=== PATIENT | male | born 1940 | race African-American/Black ===

== ENCOUNTER 2017-06-07 17:40 | Inpatient (IN) | payer MEDICARE, OTHER ==
[~2017-06-07] VITALS: Ht 165.1 cm; Wt 61.0 kg
[~2017-06-07 17:40] MED LIST: SITA50 PO
[2017-06-07] MEDS ORDERED: ATOR10TA69 PO (17:50)
[2017-06-07] MEDS ORDERED: LORA0.5T83 PO (17:50)
[2017-06-07] MEDS ORDERED: METF500T4 PO (17:50)
[2017-06-07] MEDS ORDERED: MEMA10TA20 PO (17:50)
[2017-06-07] MEDS ORDERED: LEVO25TA9 PO (17:50)
[2017-06-07] MEDS ORDERED: LIDO700A30 TP (17:50)
[2017-06-07] MEDS ORDERED: FURO20TA4 PO (17:50)
[2017-06-07 17:58] LABS: GLUCOSE,POINT OF CARE 142 MG/DL (70-110)
[2017-06-07 19:33] LABS: BASOPHILS % (AUTO) 0.8 % (0.0-2.0); EOSINOPHILS % (AUTO) 0.8 % (1.0-6.0); HEMATOCRIT 43.7 % (41-53); HEMOGLOBIN 14.6 g/dL (13.5-17.5); LYMPHOCYTES % (AUTO) 20.5 % (22.0-44.0); MEAN CORPUSCULAR HEMOGLOBIN 29.9 pg (26.0-34.0); MEAN CORPUSCULAR HGB CONC 33.4 G/dL (31.0-37.0); MEAN CORPUSCULAR VOLUME 90 fL (80-100); MONOCYTES # (AUTO) 0.4 K/uL (0.1-1.0); MONOCYTES % (AUTO) 8.1 % (2.0-9.0); NEUTROPHILS # (AUTO) 3.3 K/uL (1.8-7.7); NEUTROPHILS % (AUTO) 69.8 % (40.0-70.0); PLATELET COUNT (AUTO) 239 K/uL (150-450); RED BLOOD CELL COUNT(AUTO) 4.88 MIL/uL (4.50-5.90)
[2017-06-07 19:40] LABS: ANION GAP 10 mmol/L (8-16); CALCIUM, TOTAL 9.4 mg/dL (8.8-10.5); CARBON DIOXIDE 27 mmol/L (22-29); CHLORIDE 100 mmol/L (98-107); CREATININE 1.47 mg/dL (0.60-1.30); GLOMERULAR FILTR. RATE CALC 56 mL/min (>60); GLUCOSE,RANDOM 158 mg/dL (70-110); POTASSIUM 4.5 mmol/L (3.5-5.1); SODIUM SERUM 137 mmol/L (136-145); UREA NITROGEN, BLOOD 29 mg/dL (7-18)
[2017-06-07 19:50] LABS: INR 1.2 (0.9-1.1)
[2017-06-07 20:00] LABS: B-TYPE NATRIURETIC PEPTIDE 2270 pg/mL (0-100)
[2017-06-07 20:04] LABS: ALANINE AMINOTRANSFERASE 21 U/L (12-78); ALBUMIN 3.7 g/dL (3.4-5.0); ALKALINE PHOSPHATASE 122 U/L (46-116); ASPARTATE AMINOTRANSFERASE 28 U/L (15-37); BILIRUBIN,TOTAL 0.6 mg/dL (0.1-1.0); CREATINE KINASE MB 2.9 ng/mL (0-5); CREATINE KINASE, TOTAL 164 U/L (39-308); TOTAL PROTEIN, SERUM 8.7 g/dL (6.4-8.2)
[2017-06-07] MEDS ORDERED: FUROSEMIDE 40 MG/4 ML VIAL IVP ONE (21:15)
[2017-06-07] MEDS ORDERED: ASPIRIN 325 MG TABLET PO ONE (21:15)
[2017-06-07] MEDS ORDERED: ACETAMINOPHEN 325 MG TABLET PO PRN ×2 (21:30→23:30)
[2017-06-07] MEDS ORDERED: ONDANSETRON HCL 4 MG/2 ML VIAL IVP PRN ×2 (21:30→23:30)
[2017-06-07] MEDS ORDERED: 0.9% SODIUM CHLORIDE 10 ML SYRINGE IVP PRN (21:30)
[2017-06-07 22:21] LABS: APPEARANCE,URINE CLEAR (CLEAR); BILIRUBIN,URINE NEGATIVE (NEGATIVE); GLUCOSE, URINE (UA) NEGATIVE (NEGATIVE); KETONES,URINE NEGATIVE (NEGATIVE); LEUKOCYTE ESTERASE ,URINE NEGATIVE (NEGATIVE); NITRATE,URINE NEGATIVE (NEGATIVE); OCCULT BLOOD,URINE TRACE (NEGATIVE); PH,URINE 6.5 (5.0-8.0); PROTEIN,URINE SEE CONFIRM (NEGATIVE); UROBILINOGEN,URINE 0.2 mg/dL (<=1.0)
[2017-06-07 23:05] LABS: SULFOSALICYLIC ACID,URINE 2+ (Negative)
[2017-06-07 23:08] LABS: BACTERIA,URINE None Seen /HPF (None Seen); RBC,URINE 0-2 /HPF (0-2); SQUAMOUS EPITHELIAL CELL,UR Rare /LPF (None Seen); WBC,URINE None Seen /HPF (0-5)
[2017-06-07 23:17] VITALS: BP 142/96
[2017-06-07] MEDS ORDERED: DEXTROSE 50%-WATER 25 GM/50 ML SYRINGE IVP PRN (23:30)
[2017-06-07] MEDS ORDERED: HYDROCODONE/ACETAMINOPHEN 5-325 MG TABLET PO PRN (23:30)
[2017-06-07 23:56] LABS: HEMOGLOBIN A1C 7.6 % (4.5-6.2)
[2017-06-07] MEDS: HEPARIN SODIUM,PORCINE 5,000 UNITS/ML VIAL SQ SCH (23:58)
[2017-06-07] MEDS: BUMETANIDE 0.25 MG/ML 4 ML VIAL IVP SCH (23:58)
[2017-06-08 00:11] LABS: THYROID STIMULATING HORMONE 6.55 uIU/mL (0.36-3.74)
[2017-06-08 00:45] LABS: PROSTATE SPECIFIC ANTIGEN < 0.13 ng/mL (0.00-4.00)
[2017-06-08 04:03] VITALS: BP 130/86
[2017-06-08] MEDS ORDERED: MetFORMIN HCL 500 MG TABLET PO SCH (06:30)
[2017-06-08 06:54] LABS: BASOPHILS % (AUTO) 0.8 % (0.0-2.0); EOSINOPHILS % (AUTO) 1.4 % (1.0-6.0); HEMATOCRIT 37.5 % (41-53); HEMOGLOBIN 12.5 g/dL (13.5-17.5); LYMPHOCYTES # (AUTO) 1.2 K/uL (1.0-4.8); LYMPHOCYTES % (AUTO) 27.3 % (22.0-44.0); MEAN CORPUSCULAR HEMOGLOBIN 29.6 pg (26.0-34.0); MEAN CORPUSCULAR HGB CONC 33.4 G/dL (31.0-37.0); MEAN CORPUSCULAR VOLUME 89 fL (80-100); MONOCYTES # (AUTO) 0.4 K/uL (0.1-1.0); MONOCYTES % (AUTO) 9.8 % (2.0-9.0); NEUTROPHILS # (AUTO) 2.7 K/uL (1.8-7.7); NEUTROPHILS % (AUTO) 60.7 % (40.0-70.0); PLATELET COUNT (AUTO) 226 K/uL (150-450); RED BLOOD CELL COUNT(AUTO) 4.24 MIL/uL (4.50-5.90); RED CELL DISTRIBUTION WIDTH 16.6 % (11.5-14.5)
[2017-06-08 07:16] VITALS: BP 120/89
[2017-06-08 07:16] LABS: BILIRUBIN,TOTAL 0.6 mg/dL (0.1-1.0); CALCIUM, TOTAL 8.8 mg/dL (8.8-10.5); CREATININE 1.44 mg/dL (0.60-1.30); POTASSIUM 4.2 mmol/L (3.5-5.1); TOTAL PROTEIN, SERUM 6.9 g/dL (6.4-8.2)
[2017-06-08] MEDS: LORazepam 0.5 MG TABLET PO SCH (08:39)
[2017-06-08] MEDS: DOCUSATE SODIUM 100 MG CAPSULE PO SCH ×2 (08:39→21:22)
[2017-06-08] MEDS: MEMANTINE HCL 10 MG TABLET PO SCH ×2 (08:41→21:22)
[2017-06-08] MEDS: BUMETANIDE 0.25 MG/ML 4 ML VIAL IVP SCH ×2 (08:41→21:22)
[2017-06-08] MEDS: LIDOCAINE HCL 5% TRANSDERMAL PATCH TD SCH (08:41)
[2017-06-08] MEDS: SitaGLIPtin PHOSPHATE 100 MG TABLET PO SCH (08:41)
[2017-06-08] MEDS: PANTOPRAZOLE SODIUM 40 MG/VIAL IVP SCH (08:42)
[2017-06-08] MEDS: HEPARIN SODIUM,PORCINE 5,000 UNITS/ML VIAL SQ SCH ×2 (08:42→15:48)
[2017-06-08] MEDS ORDERED: LEVOTHYROXINE SODIUM 25 MCG TABLET PO SCH (09:00)
[2017-06-08 11:33] VITALS: BP 130/89
[2017-06-08] MEDS: CARVEDILOL 6.25 MG TABLET PO SCH ×2 (15:47→21:00)
[2017-06-08 16:15] VITALS: BP 121/84
[2017-06-08 19:39] LABS: GLUCOMETER DEV NAME(LOC) 5S 1M; GLUCOSE,POINT OF CARE 103 MG/DL (70-110)
[2017-06-08 19:39] LABS: GLUCOMETER DEV NAME(LOC) 5N 2S; GLUCOSE,POINT OF CARE 87 MG/DL (70-110)
[2017-06-08 19:42] LABS: GLUCOMETER DEV NAME(LOC) 5S 1M; GLUCOSE,POINT OF CARE 101 MG/DL (70-110)
[2017-06-08 20:14] VITALS: BP 104/74
[2017-06-08] MEDS: ATORVASTATIN CALCIUM 10 MG TABLET PO SCH (21:22)
[2017-06-08] MEDS: -LIDODERM PATCH NOTE- MISC SCH (21:37)
[2017-06-09 00:09] VITALS: BP 104/53
[2017-06-09] MEDS: HEPARIN SODIUM,PORCINE 5,000 UNITS/ML VIAL SQ SCH ×4 (00:24→23:32)
[2017-06-09 01:08] LABS: GLUCOMETER DEV NAME(LOC) 5S 1M; GLUCOSE,POINT OF CARE 118 MG/DL (70-110)
[2017-06-09] MEDS: LEVOTHYROXINE SODIUM 50 MCG TABLET PO SCH (06:12)
[2017-06-09 06:48] LABS: BASOPHILS % (AUTO) 0.7 % (0.0-2.0); EOSINOPHILS % (AUTO) 1.8 % (1.0-6.0); HEMATOCRIT 36.5 % (41-53); HEMOGLOBIN 12.6 g/dL (13.5-17.5); MEAN CORPUSCULAR HEMOGLOBIN 30.5 pg (26.0-34.0); MEAN CORPUSCULAR HGB CONC 34.6 G/dL (31.0-37.0); MEAN CORPUSCULAR VOLUME 88 fL (80-100); MONOCYTES # (AUTO) 0.5 K/uL (0.1-1.0); MONOCYTES % (AUTO) 12.2 % (2.0-9.0); NEUTROPHILS # (AUTO) 2.4 K/uL (1.8-7.7); NEUTROPHILS % (AUTO) 59.3 % (40.0-70.0); PLATELET COUNT (AUTO) 225 K/uL (150-450); RED BLOOD CELL COUNT(AUTO) 4.14 MIL/uL (4.50-5.90); RED CELL DISTRIBUTION WIDTH 16.5 % (11.5-14.5)
[2017-06-09 06:57] LABS: CALCIUM, TOTAL 8.7 mg/dL (8.8-10.5); CREATININE 1.5 mg/dL (0.60-1.30); MAGNESIUM 1.6 mg/dL (1.80-2.40); POTASSIUM 4.3 mmol/L (3.5-5.1)
[2017-06-09 07:18] LABS: GLUCOMETER DEV NAME(LOC) 5S 1M; GLUCOSE,POINT OF CARE 107 MG/DL (70-110)
[2017-06-09 07:59] VITALS: BP 111/74
[2017-06-09] MEDS: PANTOPRAZOLE SODIUM 40 MG/VIAL IVP SCH (08:54)
[2017-06-09] MEDS: MEMANTINE HCL 10 MG TABLET PO SCH ×2 (08:55→20:16)
[2017-06-09] MEDS: CARVEDILOL 6.25 MG TABLET PO SCH ×2 (08:55→20:17)
[2017-06-09] MEDS: DOCUSATE SODIUM 100 MG CAPSULE PO SCH ×2 (08:55→20:27)
[2017-06-09] MEDS: SitaGLIPtin PHOSPHATE 100 MG TABLET PO SCH (08:55)
[2017-06-09] MEDS: LIDOCAINE HCL 5% TRANSDERMAL PATCH TD SCH (08:55)
[2017-06-09] MEDS: BUMETANIDE 0.25 MG/ML 4 ML VIAL IVP SCH ×2 (08:55→20:16)
[2017-06-09] MEDS: LORazepam 0.5 MG TABLET PO SCH (08:55)
[2017-06-09 11:16] VITALS: BP 111/74
[2017-06-09 15:58] VITALS: BP 115/72
[2017-06-09 20:04] VITALS: BP_SYST 131; BP_DIAS 20; BP_DIAS 70
[2017-06-09 20:13] LABS: GLUCOMETER DEV NAME(LOC) 5N 2S; GLUCOSE,POINT OF CARE 26 MG/DL (70-110)
[2017-06-09 20:13] LABS: GLUCOMETER DEV NAME(LOC) 5N 2S; GLUCOSE,POINT OF CARE 45 MG/DL (70-110)
[2017-06-09 20:13] LABS: GLUCOMETER DEV NAME(LOC) 5N 2S; GLUCOSE,POINT OF CARE 196 MG/DL (70-110)
[2017-06-09] MEDS: ZOLPIDEM TARTRATE 5 MG TABLET PO PRN (20:16)
[2017-06-09] MEDS: ATORVASTATIN CALCIUM 10 MG TABLET PO SCH (20:17)
[2017-06-09] MEDS: -LIDODERM PATCH NOTE- MISC SCH (21:00)
[2017-06-09 23:58] LABS: GLUCOMETER DEV NAME(LOC) 5S 1M; GLUCOSE,POINT OF CARE 144 MG/DL (70-110)
[2017-06-10 00:02] VITALS: BP 104/75
[2017-06-10 04:19] VITALS: BP 109/78
[2017-06-10] MEDS: LEVOTHYROXINE SODIUM 50 MCG TABLET PO SCH (05:37)
[2017-06-10 06:33] LABS: GLUCOMETER DEV NAME(LOC) 5N 2S; GLUCOSE,POINT OF CARE 98 MG/DL (70-110)
[2017-06-10 07:45] VITALS: BP 112/67
[2017-06-10] MEDS: HEPARIN SODIUM,PORCINE 5,000 UNITS/ML VIAL SQ SCH ×3 (09:09→23:39)
[2017-06-10] MEDS: CARVEDILOL 6.25 MG TABLET PO SCH ×2 (09:09→20:59)
[2017-06-10] MEDS: PANTOPRAZOLE SODIUM 40 MG/VIAL IVP SCH (09:09)
[2017-06-10] MEDS: LORazepam 0.5 MG TABLET PO SCH (09:10)
[2017-06-10] MEDS: DOCUSATE SODIUM 100 MG CAPSULE PO SCH ×2 (09:11→20:59)
[2017-06-10] MEDS: BUMETANIDE 0.25 MG/ML 4 ML VIAL IVP SCH ×2 (09:11→21:00)
[2017-06-10] MEDS: LIDOCAINE HCL 5% TRANSDERMAL PATCH TD SCH (09:12)
[2017-06-10] MEDS: SitaGLIPtin PHOSPHATE 100 MG TABLET PO SCH (09:12)
[2017-06-10] MEDS: MEMANTINE HCL 10 MG TABLET PO SCH ×2 (09:12→20:59)
[2017-06-10 11:30] VITALS: BP 127/70
[2017-06-10] MEDS: INSULIN LISPRO 100 UNITS/ML SQ PRN ×2 (11:39→16:46)
[2017-06-10 16:10] VITALS: BP 124/68
[2017-06-10 20:34] VITALS: BP 115/66
[2017-06-10] MEDS: ZOLPIDEM TARTRATE 5 MG TABLET PO PRN (20:59)
[2017-06-10] MEDS: ATORVASTATIN CALCIUM 10 MG TABLET PO SCH (20:59)
[2017-06-10] MEDS: -LIDODERM PATCH NOTE- MISC SCH (21:00)
[2017-06-11 00:29] VITALS: BP 99/59
[2017-06-11 05:16] VITALS: BP 108/71
[2017-06-11] MEDS: LEVOTHYROXINE SODIUM 50 MCG TABLET PO SCH (05:30)
[2017-06-11 07:08] LABS: GLUCOMETER DEV NAME(LOC) 5S 2N; GLUCOSE,POINT OF CARE 112 MG/DL (70-110)
[2017-06-11 07:19] VITALS: BP 110/73
[2017-06-11 07:32] LABS: GLUCOMETER DEV NAME(LOC) 5N 2S; GLUCOSE,POINT OF CARE 104 MG/DL (70-110)
[2017-06-11 07:32] LABS: GLUCOMETER DEV NAME(LOC) 5N 2S; GLUCOSE,POINT OF CARE 97 MG/DL (70-110)
[2017-06-11 07:32] LABS: GLUCOMETER DEV NAME(LOC) 5N 2S; GLUCOSE,POINT OF CARE 127 MG/DL (70-110)
[2017-06-11 07:32] LABS: GLUCOMETER DEV NAME(LOC) 5N 2S; GLUCOSE,POINT OF CARE 150 MG/DL (70-110)
[2017-06-11] MEDS: LORazepam 0.5 MG TABLET PO SCH (09:16)
[2017-06-11] MEDS: DOCUSATE SODIUM 100 MG CAPSULE PO SCH (09:16)
[2017-06-11] MEDS: CARVEDILOL 6.25 MG TABLET PO SCH (09:16)
[2017-06-11] MEDS: MEMANTINE HCL 10 MG TABLET PO SCH (09:16)
[2017-06-11] MEDS: HEPARIN SODIUM,PORCINE 5,000 UNITS/ML VIAL SQ SCH (09:17)
[2017-06-11] MEDS: BUMETANIDE 0.25 MG/ML 4 ML VIAL IVP SCH (09:17)
[2017-06-11] MEDS: PANTOPRAZOLE SODIUM 40 MG/VIAL IVP SCH (09:18)
[2017-06-11] MEDS: LIDOCAINE HCL 5% TRANSDERMAL PATCH TD SCH (09:30)
[2017-06-11 12:00] VITALS: BP 118/70
[2017-06-11] MEDS: SitaGLIPtin PHOSPHATE 100 MG TABLET PO SCH (12:37)
[2017-06-11] MEDS ORDERED: FURO20 PO (14:34)
[2017-06-11] MEDS ORDERED: CARV6 PO (14:35)
[2017-06-11] MEDS ORDERED: SITA100 PO (14:37)
[2017-06-11 15:45] VITALS: BP 116/72
[2017-06-12 00:32] LABS: GLUCOMETER DEV NAME(LOC) 5N 2S; GLUCOSE,POINT OF CARE 86 MG/DL (70-110)
== END 2017-06-11 17:30 | disposition home or self-care (01) | DRG 291 ==
LOC: EMS 17:41 → 5N 21:57
PROVIDERS: ADMIT Internal Medicine; ATTEND Internal Medicine
DX: I13.0 Hypertensive heart and chronic kidney disease with heart failure and stage 1 through stage 4 chronic kidney disease, or unspecified chronic kidney disease (principal); I50.23 Acute on chronic systolic (congestive) heart failure; E11.22 Type 2 diabetes mellitus with diabetic chronic kidney disease; I42.9 Cardiomyopathy, unspecified; F03.90 Unspecified dementia, unspecified severity, without behavioral disturbance, psychotic disturbance, mood disturbance, and anxiety; N18.3 Chronic kidney disease, stage 3 (moderate); M48.02 Spinal stenosis, cervical region; E03.9 Hypothyroidism, unspecified; E78.00 Pure hypercholesterolemia, unspecified; E78.5 Hyperlipidemia, unspecified; F41.9 Anxiety disorder, unspecified; Z79.899 Other long term (current) drug therapy; Z98.1 Arthrodesis status; Z85.46 Personal history of malignant neoplasm of prostate
CPT/HCPCS: 82962; 83036; 83735; 84153; 84443; 93005; 93306; 93970; 97116; 97161; 97162; 97166; 97530; 97535; C9113; J1644; J1940; J3490

== ENCOUNTER → 2017-08-19 | Outpatient (CLI) | payer MEDICARE, OTHER ==
[~2017-08-19] MED LIST changes: +ATOR10TA69 PO; +CARV6 PO; +FURO20 PO; +LEVO25TA9 PO; +LIDO700A30 TP; +LORA0.5T83 PO; +MEMA10TA20 PO; +METF500T6 PO; +SITA100 PO; -SITA50 PO
[2017-08-19 14:00] LABS: EOSINOPHILS % (AUTO) 3.4 % (1.0-6.0); HEMATOCRIT 35.8 % (41-53); HEMOGLOBIN 12.1 g/dL (13.5-17.5); LYMPHOCYTES # (AUTO) 1.2 K/uL (1.0-4.8); LYMPHOCYTES % (AUTO) 24.9 % (22.0-44.0); MEAN CORPUSCULAR HEMOGLOBIN 30.2 pg (26.0-34.0); MEAN CORPUSCULAR HGB CONC 33.7 G/dL (31.0-37.0); MEAN CORPUSCULAR VOLUME 90 fL (80-100); MONOCYTES # (AUTO) 0.5 K/uL (0.1-1.0); MONOCYTES % (AUTO) 11.2 % (2.0-9.0); NEUTROPHILS # (AUTO) 2.9 K/uL (1.8-7.7); NEUTROPHILS % (AUTO) 59.5 % (40.0-70.0); PLATELET COUNT (AUTO) 277 K/uL (150-450); RED BLOOD CELL COUNT(AUTO) 3.99 MIL/uL (4.50-5.90); RED CELL DISTRIBUTION WIDTH 17.3 % (11.5-14.5)
[2017-08-19 14:15] LABS: HEMOGLOBIN A1C 7.7 % (4.5-6.2)
[2017-08-19 15:45] LABS: % IRON SATURATION 24.6 % (30-44)
[2017-08-19 16:02] LABS: ALBUMIN 3.2 g/dL (3.4-5.0); BILIRUBIN,TOTAL 0.6 mg/dL (0.1-1.0); CALCIUM, TOTAL 8.7 mg/dL (8.8-10.5); CHOL/HDL RATIO 3.3 (4.2-7.3); CREATININE 1.67 mg/dL (0.60-1.30); FREE T4 (FREE THYROXINE) 1.25 ng/dL (0.76-1.46); MAGNESIUM 1.7 mg/dL (1.80-2.40); PHOSPHORUS 3.9 mg/dL (2.5-4.9); POTASSIUM 4.9 mmol/L (3.5-5.1); THYROID STIMULATING HORMONE 2.61 uIU/mL (0.36-3.74)
[2017-08-19 16:21] LABS: URIC ACID 5.9 mg/dL (2.6-7.2)
[2017-08-20 12:14] LABS: ALPHA-1 (IFE & PEP) 0.2 g/dL (0.0-0.4); GAMMA GLOBULINS (IFE & ELP) 1.6 g/dL (0.4-1.8); IGM (IMMUNOFIXATION) 338 mg/dL (15-143)
== END | disposition home or self-care (01) ==
LOC: LABPV 11:15
PROVIDERS: ATTEND Hospitalist
DX: E55.9 Vitamin D deficiency, unspecified (principal); I11.0 Hypertensive heart disease with heart failure; I50.9 Heart failure, unspecified; E11.9 Type 2 diabetes mellitus without complications; E03.9 Hypothyroidism, unspecified; F41.9 Anxiety disorder, unspecified
CPT/HCPCS: 82306; 82728; 82784; 83036; 83540; 83550; 83735; 83970; 84155; 84165; 84439; 84443; 84466; 84550; 86334

== ENCOUNTER → 2017-12-22 | Outpatient (CLI) | payer MEDICARE, OTHER ==
[~2017-12-22] MED LIST changes: +METF-960 PO; -METF500T6 PO
[2017-12-22 16:28] LABS: BASOPHILS % (AUTO) 0.7 % (0.0-2.0); EOSINOPHILS % (AUTO) 0.9 % (1.0-6.0); HEMATOCRIT 38.2 % (41-53); HEMOGLOBIN 12.7 g/dL (13.5-17.5); LYMPHOCYTES % (AUTO) 17.4 % (22.0-44.0); MEAN CORPUSCULAR HEMOGLOBIN 30.5 pg (26.0-34.0); MEAN CORPUSCULAR HGB CONC 33.4 G/dL (31.0-37.0); MEAN CORPUSCULAR VOLUME 92 fL (80-100); MONOCYTES # (AUTO) 0.5 K/uL (0.1-1.0); MONOCYTES % (AUTO) 8.9 % (2.0-9.0); NEUTROPHILS % (AUTO) 72.1 % (40.0-70.0); PLATELET COUNT (AUTO) 239 K/uL (150-450); RED BLOOD CELL COUNT(AUTO) 4.17 MIL/uL (4.50-5.90); RED CELL DISTRIBUTION WIDTH 14.4 % (11.5-14.5)
[2017-12-22 16:43] LABS: % IRON SATURATION 15.9 % (30-44)
[2017-12-22 16:55] LABS: ALBUMIN 3.6 g/dL (3.4-5.0); CREATININE 1.66 mg/dL (0.60-1.30)
[2017-12-24 00:06] LABS: FREE KAPPA LIGHT CHAINS,S 41.4 mg/L (3.3-19.4); FREE KAPPA/LAMBDA LT CHN RATIO 1.75 (0.26-1.65)
[2017-12-24 14:56] LABS: BILIRUBIN,URINE NEGATIVE (NEGATIVE); GLUCOSE, URINE (UA) NEGATIVE (NEGATIVE); KETONES,URINE NEGATIVE (NEGATIVE); LEUKOCYTE ESTERASE ,URINE NEGATIVE (NEGATIVE); NITRATE,URINE NEGATIVE (NEGATIVE); OCCULT BLOOD,URINE TRACE (NEGATIVE); PROTEIN,URINE SEE CONFIRM (NEGATIVE); UROBILINOGEN,URINE 0.2 mg/dL (<=1.0)
[2017-12-24 14:58] LABS: APPEARANCE,URINE SLIGHTLY CLOUDY (CLEAR); SULFOSALICYLIC ACID,URINE 3+ (Negative)
[2017-12-24 14:59] LABS: BACTERIA,URINE None Seen /HPF (None Seen); RBC,URINE 0-2 /HPF (0-2); SQUAMOUS EPITHELIAL CELL,UR Moderate /LPF (None Seen); WBC,URINE None Seen /HPF (0-5)
[2017-12-24 15:23] LABS: PROTEIN,URINE RANDOM 323 mg/dL (0-11.9)
== END | disposition home or self-care (01) ==
LOC: LABPV 14:47
PROVIDERS: ATTEND Hospitalist
DX: I13.0 Hypertensive heart and chronic kidney disease with heart failure and stage 1 through stage 4 chronic kidney disease, or unspecified chronic kidney disease (principal); E11.22 Type 2 diabetes mellitus with diabetic chronic kidney disease; N18.6 End stage renal disease; I50.9 Heart failure, unspecified; E55.9 Vitamin D deficiency, unspecified; R80.9 Proteinuria, unspecified
CPT/HCPCS: 82306; 82570; 82728; 83540; 83550; 83883; 84156; 84466

== ENCOUNTER 2017-12-26 13:05 | Emergency (ER) | payer MEDICARE, OTHER ==
[~2017-12-26] VITALS: Ht 172.7 cm; Wt 81.8 kg
[2017-12-26] MEDS ORDERED: TraMADol HCL 50 MG TABLET PO ONE (14:30)
[2017-12-26 16:40] VITALS: BP 152/107
== END 2017-12-26 17:10 | disposition home or self-care (01) ==
LOC: EMS 13:07
DX: S30.0XXA Contusion of lower back and pelvis, initial encounter (principal); F03.90 Unspecified dementia, unspecified severity, without behavioral disturbance, psychotic disturbance, mood disturbance, and anxiety; I11.0 Hypertensive heart disease with heart failure; I50.9 Heart failure, unspecified; E11.9 Type 2 diabetes mellitus without complications; E03.9 Hypothyroidism, unspecified; F41.9 Anxiety disorder, unspecified; E78.00 Pure hypercholesterolemia, unspecified; Z79.899 Other long term (current) drug therapy; Z79.84 Long term (current) use of oral hypoglycemic drugs; Z98.890 Other specified postprocedural states; W07.XXXA Fall from chair, initial encounter; Y93.89 Activity, other specified; Y92.89 Other specified places as the place of occurrence of the external cause; Y99.8 Other external cause status
CPT/HCPCS: 72100; 72170; 99284

== ENCOUNTER → 2018-02-17 | Outpatient (CLI) | payer MEDICARE, OTHER ==
[2018-02-17 16:06] LABS: BASOPHILS % (AUTO) 0.6 % (0.0-2.0); EOSINOPHILS % (AUTO) 1.7 % (1.0-6.0); HEMATOCRIT 39.6 % (41-53); LYMPHOCYTES # (AUTO) 1.1 K/uL (1.0-4.8); LYMPHOCYTES % (AUTO) 25.1 % (22.0-44.0); MEAN CORPUSCULAR HEMOGLOBIN 30.7 pg (26.0-34.0); MEAN CORPUSCULAR HGB CONC 32.9 G/dL (31.0-37.0); MEAN CORPUSCULAR VOLUME 93 fL (80-100); MONOCYTES # (AUTO) 0.3 K/uL (0.1-1.0); MONOCYTES % (AUTO) 6.6 % (2.0-9.0); NEUTROPHILS # (AUTO) 2.9 K/uL (1.8-7.7); PLATELET COUNT (AUTO) 265 K/uL (150-450); RED BLOOD CELL COUNT(AUTO) 4.24 MIL/uL (4.50-5.90); RED CELL DISTRIBUTION WIDTH 17.3 % (11.5-14.5)
[2018-02-17 16:13] LABS: HEMOGLOBIN A1C 6.3 % (4.5-6.2)
[2018-02-17 16:27] LABS: ALBUMIN 3.3 g/dL (3.4-5.0); CALCIUM, TOTAL 8.3 mg/dL (8.8-10.5); CREATININE 1.49 mg/dL (0.60-1.30); PHOSPHORUS 2.6 mg/dL (2.5-4.9); POTASSIUM 4.9 mmol/L (3.5-5.1); THYROID STIMULATING HORMONE 4.2 uIU/mL (0.36-3.74)
[2018-02-17 16:37] LABS: URIC ACID 6.6 mg/dL (2.6-7.2)
[2018-02-19 00:06] LABS: FREE KAPPA LIGHT CHAINS,S 57.9 mg/L (3.3-19.4); FREE KAPPA/LAMBDA LT CHN RATIO 1.46 (0.26-1.65)
== END | disposition home or self-care (01) ==
LOC: LABPV 13:21
PROVIDERS: ATTEND Hospitalist
DX: D47.2 Monoclonal gammopathy (principal); R40.0 Somnolence; E55.9 Vitamin D deficiency, unspecified; R80.9 Proteinuria, unspecified; I13.0 Hypertensive heart and chronic kidney disease with heart failure and stage 1 through stage 4 chronic kidney disease, or unspecified chronic kidney disease; E11.22 Type 2 diabetes mellitus with diabetic chronic kidney disease; N18.3 Chronic kidney disease, stage 3 (moderate); I50.9 Heart failure, unspecified; E11.21 Type 2 diabetes mellitus with diabetic nephropathy
CPT/HCPCS: 82306; 83036; 83883; 83970; 84443; 84550

== ENCOUNTER → 2018-03-12 | Outpatient (CLI) | payer MEDICARE, OTHER | END | disposition home or self-care (01) | LOC: RADPV 12:48 | PROVIDERS: ATTEND Hospitalist | DX: D47.2 Monoclonal gammopathy (principal) | CPT/HCPCS: 77080 ==